=== PATIENT | female | born 1980 | race Caucasian/White ===

== ENCOUNTER 2016-07-22 10:40 | Emergency (ER) | payer MEDICARE, MEDICAID ==
[~2016-07-22] VITALS: Ht 177.8 cm; Wt 109.1 kg
[~2016-07-22 10:40] MED LIST: AMBIEN 10MG10 MG PO; BACTRIM DS 8001 TAB PO; BUSPAR10 MG PO; CELEXA40 MG PO; CLEOCIN HCL300 MG PO; COMBIVENT INH14.7 GM IH; CYMBALTA 60MG60 MG PO; DILAUDID 4MG TAB4 MG PO; DILAUDID8 M1 PO; DOXYCYCLINE 10100 MG PO; EXALGO16 MG PO; INSLANT SC; KLONOPIN 1MG1 MG PO; LANTUS100 U/ML SQ; LASIX 20MG TABL20 MG PO; LUNESTA2 MG PO; METHADOSE40 MG PO; NOVLOG SQ; NOVOLOG 100U100 U/M1 SQ; PREDNISONE20 MG PO; SEROQUEL 1100 MG/TAB PO; SEROQUEL 200MG200 MG PO; SINEQUAN 1010 MG/CAP PO; SYNTHROID 0.0.025 MG PO; VIIBRYD20 MG PO; XANAX 1MG1 MG PO; ZESTRIL 10MG10 MG PO; ZITHROMAX 250M250 MG PO; ZOFRAN 4MG T4 MG/TAB PO; ZOVIRAX800 MG PO
[2016-07-22 10:43] VITALS: TEMP 98.2
[2016-07-22 11:49] LABS: ADJUSTED CALCIUM 9.6 mg/dL (8.4-10.2); ALBUMIN 3.8 gm/dL (3.5-5.0); BASO # 0.1 (0.0-0.2); BASO % 0.6 % (0.0-2.0); BILIRUBIN,TOTAL 0.5 mg/dL (0.0-1.0); C-REACTIVE PROTEIN 2.9 mg/dL (0.0-0.9); CALCIUM 9.4 mg/dL (8.4-10.2); CREATININE, serum 0.88 mg/dL (0.52-1.25); EOS # 0.2 (0.0-0.7); EOS % 1.4 % (0-4.0); GRAN # 5.6 (1.4-6.5); GRAN % 51.1 % (42.2-75.2); HEMATOCRIT 39.9 % (37.0-47.0); LYMPH # 4.2 (1.2-3.4); LYMPH % 39.2 % (20.0-51.0); MEAN CELL VOLUME 87 fl (80.0-100.0); MEAN CORPUSCULAR HEMOGLOBIN 31 pg (27.0-31.0); MEAN CORPUSCULAR HGB CONC 35 g/dl (33.0-37.0); MONO # 0.8 (0.1-0.6); MONO % 7.4 % (1.7-9.3); PLATELET COUNT 199 K/mm3 (130-400); POTASSIUM 3.4 mmol/L (3.4-5.0); RED BLOOD COUNT 4.58 M/mm3 (4.10-5.30); REDCELL DISTRIBUTION WIDTH-CV 12.5 % (11.5-14.5); TOTAL PROTEIN 7.5 gm/dL (6.4-8.2); WHITE BLOOD COUNT 10.8 K/mm3 (4.8-10.8)
[2016-07-22 12:07] LABS: URIC ACID 5.8 mg/dL (2.5-6.2)
[2016-07-22 12:17] LABS: ERYTHROCYTE SEDIMENTATION RATE 10 mm/hr (0-20)
[2016-07-22] MEDS ORDERED: INDOCIN50 MG PO (13:38)
[2016-07-22 13:51] VITALS: BP 138/67; PULSE 109
== END 2016-07-22 14:06 | disposition home or self-care (01) ==
LOC: COL.ER 10:40
PROVIDERS: Nurse Practitioner
DX: M79.671 Pain in right foot (principal)
CPT/HCPCS: J1170; J1885